=== PATIENT | female | born 1960 | race Caucasian/White ===

== ENCOUNTER 2016-10-09 15:52 | Emergency (ER) | payer SELFPAY ==
--- NOTE | 2016-10-16 13:52 | ER ---
ADMIT: 10/09/2016 RM/LOC: ER [facility] MR#: [id number] [address] [id number] JULIANA HORAN [address] [place] [address] Emergency Room Report SEX: F AGE: 56 : 1960 DATE: 10/09/2016 ADDENDUM: CHIEF COMPLAINT: Flank pain. HISTORY OF PRESENT ILLNESS: This is a 56-year-old who has what sounds like chronic back pain. It has just been worse for today, so she came in the ER to be evaluated. Urine is collected. It is negative for any infection. I told her just to go home. It is okay to take Motrin or Tylenol for pain. Follow up with primary care physician if it continues. CLINICAL IMPRESSION: Chronic back pain. TYRONE Vera / Tramaine Victor MD / marguerite JOB #: [id number] CC: Tramaine Victor MD, Attending Physician Arleth Hughes MD, Family Physician
== END 2016-10-09 17:00 | disposition home or self-care (01) ==
LOC: ER 15:52
DX: M54.6 Pain in thoracic spine (principal); G89.29 Other chronic pain; G40.909 Epilepsy, unspecified, not intractable, without status epilepticus; Z98.890 Other specified postprocedural states; Z79.899 Other long term (current) drug therapy

== ENCOUNTER → 2016-10-14 | Outpatient (CLI) | payer OTHER | END | disposition home or self-care (01) | LOC: PTH.S 10:15 | DX: E11.9 Type 2 diabetes mellitus without complications (principal); G40.909 Epilepsy, unspecified, not intractable, without status epilepticus ==

== ENCOUNTER → 2016-12-18 | Outpatient (CLI) | payer OTHER | END | disposition home or self-care (01) | LOC: PTH.S 12-07 15:00 | DX: E11.9 Type 2 diabetes mellitus without complications (principal); E87.6 Hypokalemia ==